=== PATIENT | female | born 1930 | race Caucasian/White ===

== ENCOUNTER 2016-06-26 09:23 | Inpatient (IN) | payer MEDICARE, BC ==
[~2016-06-26] VITALS: Ht 154.9 cm; Wt 46.6 kg
[2016-06-26] VITALS (18 sets, daily range): BP systolic 122–147; BP diastolic 71–95; PULSE 73–93; RESP 13–24; TEMP 98.3; Ht 154.9 cm; Wt 46.6 kg
[2016-06-26] MEDS ORDERED: HEPARIN 1000 UNITS/ML 10 ML INJ IV STA (09:25)
[2016-06-26] MEDS ORDERED: SOD CHLORIDE 0.9% 500 ML IV STA (09:25)
[2016-06-26] MEDS ORDERED: TICAGRELOR 90 MG TABLET PO ONE (09:30)
[2016-06-26] MEDS ORDERED: NITROGLYCERIN (SL) 0.4 MG TAB SL ONE (09:30)
[2016-06-26 09:40] LABS: ADD SCAN DIFF NO
[2016-06-26 09:43] LABS: HEMATOCRIT 41.6 % (37.0-47.0); HEMOGLOBIN 13.7 g/dl (12.0-16.0); LYMPHOCYTES # 1.4 10^3/ul (0.8-2.9); LYMPHOCYTES % 20.8 % (15.0-51.0); MEAN CORPUSCULAR HEMOGLOBIN 31.3 pg (29.0-33.0); MEAN CORPUSCULAR HGB CONC 32.9 g/dl (32.0-37.0); MEAN PLATELET VOLUME 9.6 fl (7.4-10.4); MONOCYTE # 0.6 10^3/ul (0.3-0.9); MONOCYTES % 9.5 % (0.0-11.0); NEUTROPHIL # 4.6 10^3/ul (1.6-7.5); NEUTROPHILS % 69.4 % (39.0-77.0); PLATELET COUNT 207 10^3/UL (140-415); RED BLOOD COUNT 4.38 10^6/ul (4.20-5.40); RED CELL DISTRIBUTION WIDTH 14.2 % (11.5-14.5); WHITE BLOOD COUNT 6.6 10^3/ul (4.8-10.8)
[2016-06-26] MEDS ORDERED: ONDANSETRON 4 MG INJ IV STA (09:46)
[2016-06-26] MEDS ORDERED: morphine 4 MG/ML VIAL IV STA (09:46)
[2016-06-26 09:51] LABS: ALBUMIN 3.9 g/dl (3.3-4.9)
[2016-06-26 09:52] LABS: POTASSIUM 4.1 mmol/L (3.5-5.1)
--- NOTE | 2016-06-26 09:52 | RADRPT ---
PROCEDURE: XR Chest. CLINICAL INDICATION: Chest pain. Code STEMI. TECHNIQUE: Single frontal view. COMPARISON: None. FINDINGS: There is mild interstitial disease bilaterally consistent with pulmonary edema. The lungs are other villa clear. The heart size is normal. There is calcification in the aorta consistent with atherosclerosis. There is no pleural effusion or pneumothorax. Surgical clips are present in the left axilla. IMPRESSION: 1. Mild pulmonary edema. 2. Atherosclerosis. 3. Prior left axillary surgery. RPTAT: QQ .Donnie Keyes MD, MD Date Time Electronically viewed and signed by .Donnie Keyes MD, MD on 06/26/2016 09:52 .R/
[2016-06-26 09:53] LABS: CREATININE 0.78 mg/dl (0.44-1.00); INR 0.93; PROTIME 12.5 Sec (12.2-14.2)
[2016-06-26 09:54] LABS: ALBUMIN/GLOBULIN RATIO 1.62; BILIRUBIN,INDIRECT 0.4 mg/dl (0-1.1); BILIRUBIN,TOTAL 0.4 mg/dl (0.2-1.3); CALCIUM 9.4 mg/dl (8.4-10.2); TOTAL PROTEIN 6.3 g/dl (6.1-8.1)
--- NOTE | 2016-06-26 10:03 | CONS ---
Date/Time of Note Date/Time of Note DATE: 06/26/16 TIME: 10:00 Assessment/Plan Assessment/Plan Chief Complaint/Hosp Course Inferoposterior STEMI: to quality control lab tech emergently for revascularization Acute systolic heart failure: mild decompensation by exam due to above -ticagrelor given as ASA allergy is significant. Will have to consider a second agent like cilostazol after -cath now Problems: Consultation Date/Type/Reason Admit Date/Time Date of Consultation: Jun 26, 2016 Type of Consultation: Cardiology Reason for Consultation STEMI Hx of Present Illness 85 yo F with no PMHx presenting with chest pain which was on and off since last night but constant this am. She has a severe ASA allergy including rash and breathing difficulties. Ticagrelor and heparin was given in ER. Pt is agreeable to cath. Social History Smoking Status: Never smoker Exam/Review of Systems Vital Signs Vitals Vital Signs Date Time Temp Pulse Resp B/P Pulse Ox O2 Delivery O2 Flow Rate FiO2 06/26/16 09:35 98.3 93 20 171/94 98 Room Air Exam Constitutional: alert, oriented Head: normocephalic Neck: jvd (8cm) Respiratory: crackles/rales, No clear to auscultation Cardiovascular: regular rate and rhythm, No edema, No systolic murmur Gastrointestinal: soft Neurological: nl mental status, nl speech Results Result Diagram: 06/26/16 0930 Results 24 hrs Laboratory Tests Test 06/26/16 09:30 Basophils # 0.0 Basophils % 0.0 Eosinophils # 0.0 Eosinophils % 0.0 Hematocrit 41.6 Hemoglobin 13.7 INR International Normalized Ratio 0.93 Lymphocytes # 1.4 Lymphocytes % 20.8 Mean Corpuscular Hemoglobin 31.3 Mean Corpuscular Hemoglobin Concent 32.9 Mean Corpuscular Volume 95.0 Mean Platelet Volume 9.6 Monocytes # 0.6 Monocytes % 9.5 Neutrophils # 4.6 Neutrophils % 69.4 Nucleated Red Blood Cells # 0.0 Nucleated Red Blood Cells % 0.0 Platelet Count 207 Prothrombin Time 12.5 Prothrombin Time Ratio 1.0 Red Blood Count 4.38 Red Cell Distribution Width 14.2 White Blood Count 6.6 JESSICA PATEL Jun 26, 2016 10:03
[2016-06-26] MEDS ORDERED: NITROGLYCERIN (IC) 100 MCG/ML INJ ONE (10:08)
[2016-06-26] MEDS ORDERED: IODIXANOL LOCM 50 ML BTL ONE (10:08)
[2016-06-26] MEDS ORDERED: MIDAZOLAM 1 MG/ML 2 ML INJ ONE (10:08)
[2016-06-26] MEDS ORDERED: VERAPAMIL 5 MG INJ ONE (10:08)
[2016-06-26] MEDS ORDERED: IODIXANOL LOCM 100 ML BTL ONE (10:08)
[2016-06-26] MEDS ORDERED: LIDOCAINE 1% (MDV) 20 ML INJ ONE (10:08)
[2016-06-26] MEDS ORDERED: HEPARIN 1000 UNITS/ML 10 ML INJ ONE (10:08)
[2016-06-26 10:29] LABS: TROPONIN-I 0.833 ng/ml (0.00-0.12)
[2016-06-26] MEDS ORDERED: FENTAnyl 50 MCG/ML VIAL ONE (10:54)
[2016-06-26] MEDS ORDERED: ONDANSETRON 4 MG INJ IV PRN (11:30)
[2016-06-26] MEDS ORDERED: morphine 2 MG INJ IV PRN (11:30)
--- NOTE | 2016-06-26 13:05 | OPR ---
Date/Time of Note Date/Time of Note DATE: 06/26/16 TIME: 12:54 Operative Report Free Text/Dictation Procedure Date: 06/26/2016 Procedures Performed: 1)Selective left and right coronary angiography. 2)Balloon angioplasty and stenting of the prox OM 2 with a Resoluet 2.25 x 14 drug eluting stent 3)Right femoral angiography with Perclose closure device placement. Pre-operative Diagnosis:inferoposterior STEMI Post-operative Diagnosis:same Indications:85 yo F who presented with chest pain and was found to have an inferoposterior STEMI. Description of Procedure: After informed consent, the patient was brought to the cardiac catheterization lab. The procedure site was prepped and draped in usual manner. The patient was premedicated with versed 0.5mg. 5 mL lidocaine was injected into the right groin. Next using the Seldinger technique, the 6 montenegrin sheath was inserted into the right femoral artery. Next using the JL4/JR4 guide, selective angiography of the left and right coronary arteries were obtained. The JR entered the ventricle and so oullback pressures were also obtained. The decision was made to proceed with PCI of the OM as this was the culprit vessel. A 6 montenegrin Voda 3.5 guide was advanced and engaged into the left. The pt had already been loaded with ticagrelor and she had a severe ASA allergy so this was not given. She had received heparin in the ER and her ACT was therapeutic so no further meds were given. The BMW angioplasty wire was advanced past the lesion. There was already JEFFERY 3 flow return after wire crossing. Next the 2.0 X 12 balloon was used to dotter the vessel and then dilate the lesion times 1 at a maximum of 8 zoraida. Subsequently, the Resolute 2.25 x 14 stent was advanced to the lesion and deployed at 9 zoraida. Next the stent was post dilated with the 2.5 X 6 noncompliant balloon times 2 at a maximum of 12 zoraida. Final angiography revealed JEFFERY 3 flow, no edge dissection, and appropriate stent expansion. Next all equipment was removed and hemostasis was achieved by Perclose closure device once right femoral angiography revealed the sheath was in the appropriate location in the common femoral. Findings: Anatomy/Hemodynamics: Left main: No significant disease LAD:mid sequential 80-90% lesions Diagonal:no significant disease Circumflex:mid 40% Obtuse marginal 1: very small vessel with mid 80% Obtuse marginal 2: moderate size vessel with prox 100% occlusion and thrombus/ contrast staining in the distal vessel RCA:luminal irregularities up to 20-30% PDA:mid 50% in a small vessel PLV:luminal irregularities LV angiography:was not done LV-Ao no gradient seen LVEDP: 14 mmHg Medications used: Versed 0.5 Fentanyl 25 Heparin 2000 additional units (3600 given in ED) Ticagrelor 180mg given in ED No ASA due to allergy Verapamil 100mcg IC x 1 Equipment used: 6 montenegrin Voda 3.5 guide BMW angioplasty wire 2 x 12 balloon Resolute 2.25 x 14 drug eluting stent 2.5 x 6 noncompliant balloon Assessment: Inferoposterior STEMI s/p successful PCI and stenting of prox OM with Resolute 2.25 x 14 drug eluting stent. Residual significant mid LAD disease which will be staged. Plan: -Monitor in ICU -ticagrelor monotherapy for now. Cant use ASA due to severe allergy. Will consider cilostazol as second agent. -metoprolol 25mg BID -lipitor -echo -add ACEI if BP and renal function tolerate once LAD is also revascularized -PCI of LAD tomorrow am JESSICA PATEL Jun 26, 2016 13:05
--- NOTE | 2016-06-26 14:09 | ERA ---
ER Documentation Chief Complaint Date/Time DATE: 06/26/16 TIME: 14:08 Chief Complaint patient ANGÉLICA with complaint Stemi Response HPI 85-year-old woman brought in by EMS for complaints of pressure-like chest pain beginning last night and continuing until this morning. She had associated nausea and intermittent shortness of breath. Patient denies previous chest, she denies fevers or chills, no cough, no calf or leg swelling, no vomiting or diarrhea. Patient states she is allergic to aspirin and breaks out into severe diffuse hives. ROS All systems reviewed and are negative except as per history of present illness. Allergies Allergies: Coded Allergies: aspirin (Verified Allergy, Intermediate, Severe Rash, 06/26/16) sulfamoxole (Verified Allergy, Intermediate, Rash, 06/26/16) PMhx/Soc None History of Surgery: No Anesthesia Reaction: No Hx Neurological Disorder: No Hx Respiratory Disorders: Yes (Asthma) Hx Cardiac Disorders: Yes (Breast CA) Hx Psychiatric Problems: No Hx Miscellaneous Medical Probl: No Hx Alcohol Use: No Hx Substance Use: No Hx Tobacco Use: No Smoking Status: Never smoker FmHx Family History: No diabetes Physical Exam Vitals Vital Signs Date Time Temp Pulse Resp B/P Pulse Ox O2 Delivery O2 Flow Rate FiO2 06/26/16 09:35 98.3 93 20 171/94 98 Room Air 06/26/16 09:31 Nasal Cannula 06/26/16 09:23 98.9 93 20 144/92 100 Physical Exam GENERAL: Well-developed, well-nourished, well-hydrated, in no apparent distress , looks nontoxic in appearance HEENT: Moist mucous membranes, pink conjunctiva, no cervical spine tenderness or step-off deformities, no goiter, no jaundice or icterus, extraocular movements intact without pain. No submandibular induration, and no pharyngeal erythema NEURO: Alert and oriented 3, cranial nerves II through XII intact bilaterally, pupils equal round reactive to light, no focal deficits or facial asymmetry, sensation intact distally Strength 5/5 in upper and lower extremities bilaterally CARDIAC: Regular rate and rhythm, no murmurs rubs or gallops LUNGS: Clear bilaterally no wheezing crackles or stridor ABDOMEN: Soft nontender, no guarding, no rigidity, no rebound, no psoas sign no obturator sign. Normoactive bowel sounds SKIN: Warm and dry to touch, no abrasions, contusions, or hematomas, no lacerations, no ecchymosis, no target lesions, and without ulcers EXTREMITIES: No clubbing cyanosis or edema, calves are bilaterally symmetrical, no Homans sign, no popliteal cord sign. Distal pulses equal and bilateral PSYCH: Normal affect without agitation or irritability Result Diagram: 06/26/1630 06/26/16 0930 Results 24 hrs Laboratory Tests Test 06/26/16 09:30 Alanine Aminotransferase (ALT/SGPT) 26IU/L Albumin 3.9g/dl Albumin/Globulin Ratio 1.62 Alkaline Phosphatase 58IU/L Anion Gap 12 Aspartate Amino Transf (AST/SGOT) 30IU/L Basophils # 0.010^3/ul Basophils % 0.0% Blood Urea Nitrogen 27mg/dl Calcium Level 9.4mg/dl Carbon Dioxide Level 28mmol/L Chloride Level 105mmol/L Creatinine 0.78mg/dl Direct Bilirubin 0.00mg/dl Eosinophils # 0.010^3/ul Eosinophils % 0.0% Globulin 2.40g/dl Glucose Level 107mg/dl Hematocrit 41.6% Hemoglobin 13.7g/dl INR International Normalized Ratio 0.93 Indirect Bilirubin 0.4mg/dl Lipase 43U/L Lymphocytes # 1.410^3/ul Lymphocytes % 20.8% Mean Corpuscular Hemoglobin 31.3pg Mean Corpuscular Hemoglobin Concent 32.9g/dl Mean Corpuscular Volume 95.0fl Mean Platelet Volume 9.6fl Monocytes # 0.610^3/ul Monocytes % 9.5% Neutrophils # 4.610^3/ul Neutrophils % 69.4% Nucleated Red Blood Cells # 0.010^3/ul Nucleated Red Blood Cells % 0.0/100WBC Platelet Count 42805^3/UL Potassium Level 4.1mmol/L Prothrombin Time 12.5Sec Prothrombin Time Ratio 1.0 Red Blood Count 4.3810^6/ul Red Cell Distribution Width 14.2% Sodium Level 141mmol/L Total Bilirubin 0.4mg/dl Total Protein 6.3g/dl Troponin I 0.833ng/ml White Blood Count 6.610^3/ul Current Medications Medications (Trade) Dose Ordered Sig/Selene Route PRN Reason Start Time Stop Time Status Last Admin Dose Admin Sodium Chloride (NS) 500 ml @ 500 mls/hr Q1H STAT IV 06/26/16 09:25 06/26/16 10:24 DC 06/26/16 09:54 Nitroglycerin (Nitroglycerin (Sl Tab) 0.4 Mg) 1 tab ONCE ONCE SL 06/26/16 09:30 06/26/16 09:31 DC 06/26/16 09:53 Heparin Sodium (Porcine) (Heparin (1000 Units/ml)) 3,600 unit ONCE STAT IV 06/26/16 09:25 06/26/16 09:28 DC 06/26/16 09:48 Ticagrelor (Brilinta) 180 mg ONCE ONCE PO 06/26/16 09:30 06/26/16 09:31 DC 06/26/16 09:49 Morphine Sulfate (morphine) 4 mg ONCE STAT IV 06/26/16 09:46 06/26/16 09:47 DC 06/26/16 09:56 Ondansetron HCl (Zofran Inj) 4 mg ONCE STAT IV 06/26/16 09:46 06/26/16 09:47 DC 06/26/16 09:56 Heparin Sodium (Porcine) (Heparin (1000 Units/ml)) 10,000 unit STK-MED ONCE .ROUTE 06/26/16 10:08 06/26/16 10:09 DC Lidocaine (Xylocaine 1% (Mdv) 20 ml) 20 ml STK-MED ONCE .ROUTE 06/26/16 10:08 06/26/16 10:09 DC Iodixanol (Visipaque Locm) 50 ml STK-MED ONCE .ROUTE 06/26/16 10:08 06/26/16 10:09 DC Iodixanol 100 ml 100 ml STK-MED ONCE .ROUTE 06/26/16 10:08 06/26/16 10:09 DC Heparin Sodium/ Sodium Chloride (Heparin 1000 Units/NS (A-Line)) 1,500 ml @ ud STK-MED ONCE .ROUTE 06/26/16 10:08 06/26/16 10:09 DC Midazolam HCl (Versed) 2 mg STK-MED ONCE .ROUTE 06/26/16 10:08 06/26/16 10:09 DC Verapamil HCl (Verapamil) 5 mg STK-MED ONCE .ROUTE 06/26/16 10:08 06/26/16 10:09 DC Nitroglycerin (Nitroglycerin (Intracoronary)) 1,000 mcg STK-MED ONCE .ROUTE 06/26/16 10:08 06/26/16 10:09 DC Fentanyl (Sublimaze) 100 mcg STK-MED ONCE .ROUTE 06/26/16 10:54 06/26/16 10:55 DC Miscellaneous Information (* Miscellaneous Pharmacy Order) HOLD all METFORMIN ... ONCE XX 06/26/16 11:30 06/28/16 11:29 Morphine Sulfate (morphine) 2 mg Q2H PRN IV FOR NON CARDIAC PAIN (4-10) 06/26/16 11:30 Ondansetron HCl (Zofran Inj) 4 mg Q4H PRN IV NAUSEA AND/OR VOMITING 06/26/16 11:30 Procedures/MDM IV line was established patient was placed on associate broker rhythm strip revealed a sinus rhythm at about 90 bpm with upright P and T waves. I reviewed EMS EKG which revealed ST elevations in leads II-III, aVF, V4 through V6 concerning for acute ischemic changes and myocardial infarction. Immediate code STEMI was called and I spoke to the infrastructure analyst on-call he agreed to come in EKG in the emergency department was performed, read by me revealed a normal sinus rhythm at 95 bpm, normal axis, narrow QRS complex with 2-3 mm elevations in inferior leads and precordial leads with ST depressions in lead V2 again concerning for myocardial infarction in the setting of acute ischemic injury. Chest X-ray 1V Interpreted by me: Soft Tissue: No acute abnormalities Bones: No acute abnormalities Mediastinum/Cardiac Silhouette/Lungs: No acute abnormalities I administered 500 cc normal saline intravenously, morphine 4 mg IV, and Zofran 4 mg IV with good effect. Also administered nitroglycerin 0.4 mg sublingual 1 , heparin 60 U/kg (3600 units) IV bolus, and ticagrelor 180 mg p.o. Critical Care: Time: 36 minutes, this was time separate from other procedures. Treatments/Evaluations: Close monitoring and treatment of unstable vital signs, cardiorespiratory, and neurologic status, while maintaining tight balance of fluid, respiratory, and cardiac interventions. CBC was normal, electrolytes revealed dehydration with a BUN/creatinine of 27/ 0.8, liver function tests are normal, troponin was positive at 0.8 Patient admitted to hospitalist to the intensive care unit, is currently on her way to PCI Departure Diagnosis: Primary Impression: ST elevation myocardial infarction (STEMI) Qualified Code: I21.09 - ST elevation myocardial infarction (STEMI) involving other coronary artery of anterior wall Condition: Serious KEITH CANO MD Jun 26, 2016 14:09
[2016-06-26] MEDS: ATORVASTATIN 40 MG TAB PO SCH (20:36)
[2016-06-26] MEDS: TICAGRELOR 90 MG TABLET PO SCH (20:46)
[2016-06-26] MEDS ORDERED: METOPROLOL 25 MG TAB PO SCH (21:00)
[2016-06-27] VITALS (43 sets, daily range): BP systolic 68–141; BP diastolic 27–105; PULSE 68–163; RESP 11–29
[2016-06-27 04:54] LABS: ADD SCAN DIFF NO
[2016-06-27 05:08] LABS: BASOPHILS % 0.1 % (0.0-2.0); HEMATOCRIT 39.3 % (37.0-47.0); HEMOGLOBIN 13.1 g/dl (12.0-16.0); LYMPHOCYTES # 1.1 10^3/ul (0.8-2.9); LYMPHOCYTES % 12.3 % (15.0-51.0); MEAN CORPUSCULAR HEMOGLOBIN 31.7 pg (29.0-33.0); MEAN CORPUSCULAR HGB CONC 33.3 g/dl (32.0-37.0); MEAN CORPUSCULAR VOLUME 95.2 fl (82.0-101.0); MEAN PLATELET VOLUME 10.1 fl (7.4-10.4); MONOCYTE # 1.1 10^3/ul (0.3-0.9); MONOCYTES % 12.6 % (0.0-11.0); NEUTROPHIL # 6.7 10^3/ul (1.6-7.5); NEUTROPHILS % 74.6 % (39.0-77.0); PLATELET COUNT 183 10^3/UL (140-415); RED BLOOD COUNT 4.13 10^6/ul (4.20-5.40); RED CELL DISTRIBUTION WIDTH 14.3 % (11.5-14.5)
[2016-06-27 05:22] LABS: POTASSIUM 3.9 mmol/L (3.5-5.1)
[2016-06-27 05:24] LABS: CREATININE 0.61 mg/dl (0.44-1.00)
[2016-06-27 05:25] LABS: CALCIUM 8.7 mg/dl (8.4-10.2)
[2016-06-27] MEDS ORDERED: LIDOCAINE 1% (MDV) 20 ML INJ ONE (06:41)
[2016-06-27] MEDS ORDERED: HEPARIN 1000 UNITS/ML 10 ML INJ ONE (06:41)
[2016-06-27] MEDS ORDERED: IODIXANOL LOCM 100 ML BTL ONE (06:41)
[2016-06-27] MEDS ORDERED: FENTAnyl 50 MCG/ML VIAL ONE (06:41)
[2016-06-27] MEDS ORDERED: VERAPAMIL 5 MG INJ ONE (06:42)
[2016-06-27] MEDS ORDERED: NITROGLYCERIN (IC) 100 MCG/ML INJ ONE (06:42)
[2016-06-27] MEDS ORDERED: MIDAZOLAM 1 MG/ML 2 ML INJ ONE (06:42)
--- NOTE | 2016-06-27 06:57 | HP ---
DATE OF ADMISSION: 06/26/2016 CHIEF COMPLAINT: Chest pain. HISTORY OF PRESENT ILLNESS: This is an 85-year-old female with past medical history of breast cance r diagnosed 2 years ago, status post radiation and lumpectomy, pneumonia, appendectomy and cataract surgery, came in to [facility] secondary to reports of chest pain. According to t he patient, she started to have chest pain after having dinner the night prior to admission. She di d report that chest pain was pressure like in nature, which radiated to both of her shoulders, 10/10 in intensity. The patient at that time reported she "thought nothing of it". She proceeded to go to sleep, however, still persisted with chest pain. When she woke her chest pain was worse and subs equently called her daughter who then brought her to [facility] for further evalua tion. The patient did have blood work drawn and was found to have elevated troponin as high as 0.83 3. Additionally, the patient did have ST elevations in lead II, III and aVF as well as through V4 a nd V6, concerning for myocardial infarction. A code STEMI was called in the ER, and the patient was seen by cutlery grinder, Dr. Prakash Lawler. The patient did receive selective left and right coron son angiography with balloon angioplasty and stenting of the proximal ____ with Resolute 2.25 x 14 d rug-eluting stent. The patient did tolerate procedure well. Of note, there were findings of LAD mi d sequential 80% to 90% lesion. The patient did have stenting of the proximal ____ with Resolute 2. 25 x 14 drug-eluting stent. She did tolerate procedure well. She was currently seen in ICU. Vital signs remain stable. Denies any chest pain at this time. We will [facility]. MEDICAL AND SURGICAL HISTORY: 1. History of breast cancer diagnosed 2 years ago, status post radiation and lumpectomy. 2. Appendectomy. 3. Pneumonia. 4. Cataract surgery. SOCIAL HISTORY: The patient denies any alcohol consumption or drug abuse. She does report having a history of cigarette smoking over 30 years ago. FAMILY HISTORY: Patient does report having heart disease on her father's side and ovarian cancer on her mother's side. ALLERGIES: ASPIRIN WELL SULFA WITH REPORTED DIFFUSE PRURITUS AND BRADYCARDIA. HOME MEDICATIONS: (Please see computer chart). REVIEW OF SYSTEMS: A 12-point review of systems obtained and entirely negative except that mentione d in the history of present illness. PHYSICAL EXAMINATION VITAL SIGNS: Temperature is 98.3, pulse is 93, respiratory rate is 20, blood pressure is 171/94 and pulse ox is 98% on room air. GENERAL: This is an 85-year-old female in no apparent distress at the time. EYES: Pupils equal, round, reactive to light. Anicteric sclerae. NECK: Supple, nontender, no JVD. CARDIOVASCULAR: S1, S2 auscultated, regular rate to tachycardic. PULMONARY: Clear to auscultation bilaterally. No wheezing or rhonchi. ABDOMEN: Soft, nontender, nondistended. EXTREMITIES: No pitting edema on bilateral lower extremities. SKIN: Warm, dry, and intact. NEUROLOGIC: Alert, oriented x3. LABORATORY DATA: Sodium 141, potassium 4.1, BUN is 27, creatinine is 0.78. With noted troponin I a t 0.833. WBC is 6.6, hemoglobin 13.7, hematocrit is 41.6 and platelets are 207. IMAGING: Chest x-ray done on 06/26/2016 did show mild pulmonary edema and atherosclerosis, and prio r left axillary surgery. IMPRESSION AND PLAN: 1. ST elevated myocardial infarction. The patient to be resumed on beta payam and ANNALEE inhibitor as tolerated. We will continue her on Brilinta. The patient unable to tolerate aspirin at this hugo e due to her history of allergy. Possible consideration for cilostazol. 2. History of dyslipidemia. Will resume patient's statin medication. Follow up on fasting lipid p gricelda. 3. History of breast cancer. No active issue at this time. Patient to follow up as outpatient [facility] onc[facility]. 4. Deep venous thrombosis prophylaxis: SCDs. 5. GERD prophylaxis: PPI. ADMISSION PROCESS TIME: 40 minutes. Discussed plan of care with Dr. Paulino. Dictated By: KEISHA HARRIS NP for SHILA ROMANO/ANDIE Conf#: [id number] DID#: [id number]
[2016-06-27] MEDS ORDERED: TICAGRELOR 90 MG TABLET ONE (07:39)
[2016-06-27] MEDS ORDERED: ONDANSETRON 4 MG INJ ONE ×2 (08:09→08:49)
[2016-06-27] MEDS ORDERED: BIVALIRUDIN 250MG /NS 50 ML 50 ML IVPB ONE (08:30)
[2016-06-27] MEDS ORDERED: METOPROLOL 5 MG INJ ONE (08:50)
[2016-06-27] MEDS ORDERED: AMIODARONE 150 MG INJ ONE (08:56)
[2016-06-27] MEDS ORDERED: morphine 2 MG INJ IV PRN (09:30)
[2016-06-27] MEDS ORDERED: ONDANSETRON 4 MG INJ IV PRN (09:30)
--- NOTE | 2016-06-27 09:46 | OPR ---
Date/Time of Note Date/Time of Note DATE: 06/27/16 TIME: 09:27 Operative Report Free Text/Dictation Procedure Date:06/27/2016 Procedures Performed: 1)Balloon angioplasty and stenting of the mid LAD with a Resolute 2.25 x 12 drug eluting stent X 2. Pre-operative Diagnosis: Staged PCI post STEMI Post-operative Diagnosis:same Indications: staged PCI of LAD post STEMI Description of Procedure: After informed consent, the patient was brought to the cardiac catheterization lab. The procedure site was prepped and draped in usual manner. The patient was premedicated with versed 1mg. 2mL lidocaine was injected into the left wrist. Next using the posterior wall approach, the 6/5 niuean sheath was inserted into the left radial artery. A 6 niuean JL4 guide was advanced and engaged into the left coronary artery. After appropriate anticoagulation and antiplatelets were given, the BMW angioplasty wire was advanced past the lesion. As the balloon would not advance due to calcification/tortuosity, a Mailman wire was used as a godfrey wire. The 2.0 x 12 balloon again would not cross. At this time the flow to the LAD was JEFFERY 1 due to to the wire occlusion and the pt was experiencing chest pain. Next the 1.5 x 8 balloon was advanced and used to dilate the lesion x 5 up to 12 zoraida restoring JEFFERY 3 flow. Next the 2.0 X 12 balloon was used to dilate the lesion times 3 at a maximum of 12 zoraida. Next a 2.25 x 26 stent could not be advanced past the lesion over either wire and neither could a 2.25 x 12 stent. The decision was made to redilate the lesion with a 2.25 x 12 NC balloon which was done x 3 at 12 zoraida. Subsequently, the Resolute 2.25 x 12 stent was advanced to the lesion over the Mailman and deployed at 9 zoraida once the BMW was removed. The stent balloon was used to dilated the stent edge at 12 zoraida. The BMW was readvanced and the Resolute 2.25 x 12 stent was advanced to the lesion over the Mailman and deployed at 9 zoraida ( overlapping with prior stent) once the BMW was removed. Next the stent was post dilated with the 2.5 X 8 noncompliant balloon times 3 at a maximum of 12 zoraida. Final angiography revealed JEFFERY 3 flow, no edge dissection, and appropriate stent expansion. Next all equipment was removed and hemostasis was achieved by TR band. There was a small diagonal vessel that lost flow in the process but the pt was chest pain free. She did however go into afib with RVR during the procedure requiring IV metoprolol and amiodarone. At the end of the procedure she was in afib still but with HR around 100. Findings: Anatomy/Hemodynamics: Left main: no significant lesions LAD:mid sequential calcified, tortuous 90% lesions Circumflex: mid 40% Obtuse marginal: patent prox stent Contrast used: 115mL Fluoroscopy time:23.7m Medications used: Versed 1mg Fentanyl 50mcg Ticagrelor 90mg Radial cocktail: heparin 5000 units, NTG 200, verapamil 2.5 Metoprolol 2.5mg IV x 2 Amiodarone 150mg Equipment used: 6 niuean JL4 guide BMW and Mailman angioplasty wire 1.5 x 8 2 x 12 balloon Resolute 2.25 x 12 drug eluting stent X 2 (overlapping) 2.25 x 12 and 2.5 x 8 noncompliant balloon Assessment: CAD s/p staged PCI of LAD STEMI s/p PCI prox OM 06/26/2016 Paroxysmal atrial fibrillation Plan: -to ICU for monitoring -rate vs rhythm control -will discuss anticoagulation -continue ticagrelor JESSICA PATEL Jun 27, 2016 09:45
--- NOTE | 2016-06-27 10:21 | CONS ---
Date/Time of Note Date/Time of Note DATE: 06/27/16 TIME: 10:03 Assessment/Plan Assessment/Plan Chief Complaint/Hosp Course Inferoposterior STEMI: s/p PCI of occluded prox OM 06/26/16 CAD: Residual mid LAD lesions s/p PCI 06/27/16 Paroxysmal afib: Short run overnight, then afib during the cath and now in and out of afib/sinus Acute systolic heart failure: mild decompensation by exam during STEMI. Now compensated ASA allergy: rash/respiratory distress -continue ticagrelor -if EF ok will add cilostazol as second antiplatelet -continue metoprolol -amiodarone IV for rhythm control as first occurrence and just started -lipitor -will discuss anticoagulation options with pt Problems: Consultation Date/Type/Reason Admit Date/Time Jun 26, 2016 at 12:06 Initial Consult Date 06/26/16 Type of Consultation: Cardiology 24 HR Interval Summary Free Text/Dictation O/n had a short run of afib. This am s/p PCI of her LAD. Went into afib with RVR towards the end of the procedure. Now in and out of afib after amio bolus. Feels nauseated but received fentanyl during the cath (morphine makes her nauseated). No chest pain Exam/Review of Systems Vital Signs Vitals Vital Signs Date Time Temp Pulse Resp B/P Pulse Ox O2 Delivery O2 Flow Rate FiO2 06/27/16 07:00 77 11 141/87 98 Nasal Cannula 06/27/16 04:00 2.0 06/27/16 04:00 98.8 Intake and Output 06/26/16 06/26/16 06/27/16 15:00 23:00 07:00 Intake Total 150 ml 300 ml 0 ml Output Total 300 ml 1000 ml 450 ml Balance -150 ml -700 ml -450 ml Exam Constitutional: alert, oriented Head: atraumatic, normocephalic Neck: No jvd Respiratory: clear to auscultation, No crackles/rales, No wheezing Cardiovascular: No edema, No regular rate and rhythm (IRIR, tachy) Gastrointestinal: soft Neurological: nl mental status, nl speech Results Result Diagram: 06/27/16 0443 06/27/16 0443 Results 24 hrs Laboratory Tests Test 06/27/16 04:43 Anion Gap 11 Basophils # 0.0 Basophils % 0.1 Blood Urea Nitrogen 17 # Calcium Level 8.7 Carbon Dioxide Level 27 Chloride Level 102 Creatinine 0.61 Eosinophils # 0.0 Eosinophils % 0.0 Glucose Level 107 Hematocrit 39.3 Hemoglobin 13.1 Lymphocytes # 1.1 Lymphocytes % 12.3 L Magnesium Level 2.1 Mean Corpuscular Hemoglobin 31.7 Mean Corpuscular Hemoglobin Concent 33.3 Mean Corpuscular Volume 95.2 Mean Platelet Volume 10.1 Monocytes # 1.1 H Monocytes % 12.6 H Neutrophils # 6.7 Neutrophils % 74.6 Nucleated Red Blood Cells # 0.0 Nucleated Red Blood Cells % 0.0 Platelet Count 183 Potassium Level 3.9 Red Blood Count 4.13 L Red Cell Distribution Width 14.3 Sodium Level 136 White Blood Count 9.0 # Medications Medications Current Medications Ticagrelor (Brilinta) 90 mg BID PO Last administered on 06/26/16 20:46; Admin Dose 90 MG; Start 06/26/16 at 21:00 Atorvastatin Calcium (Lipitor) 40 mg QHS PO Last administered on 06/26/16 20:36 ; Admin Dose 40 MG; Start 06/26/16 at 21:00 Miscellaneous Information (* Miscellaneous Pharmacy Order) HOLD all METFORMIN ... ONCE XX ; Start 06/26/16 at 11:30; Stop 06/28/16 at 11:29 Exemestane (Aromasin) 25 mg DAILY PO ; Start 06/27/16 at 09:00 Metoprolol Tartrate (Lopressor) 50 mg BID PO ; Start 06/27/16 at 21:00 Morphine Sulfate (morphine) 2 mg Q2H PRN IV FOR NON CARDIAC PAIN (4-10); Start 06/27/16 at 09:30 Ondansetron HCl (Zofran Inj) 4 mg Q4H PRN IV NAUSEA AND/OR VOMITING; Start 06/27 at 09:30 JESSICA PATEL Jun 27, 2016 10:13
[2016-06-27] MEDS ORDERED: AMIODARONE 900 MG in DEXTROSE 5% 482 ML IV SCH (10:30)
[2016-06-27] MEDS: EXEMESTANE 25 MG TAB PO SCH (10:45)
[2016-06-27] MEDS: METOPROLOL 25 MG TAB PO SCH ×2 (11:04→21:00)
[2016-06-27 12:16] LABS: CHOL/HDL RATIO 3.6 RATIO
[2016-06-27] MEDS: TICAGRELOR 90 MG TABLET PO SCH ×2 (12:25→21:00)
[2016-06-27] MEDS ORDERED: SOD CHLORIDE 0.9% 250 ML IV ONE (14:30)
--- NOTE | 2016-06-27 15:25 | PN ---
DATE: 06/27/2016 TIME OF EVALUATION: 12:30. SUBJECTIVE DATA: Denies any chest pain. Denies any dyspnea. OBJECTIVE DATA: VITAL SIGNS: Temperature 98.8, pulse rate 100, respiratory rate 21, blood pressure 116/75, oxygen saturation 100% on room air. GENERAL: This is a thin, frail-looking female, lying in bed, in no apparent distress. HEENT: Head normocephalic and atraumatic. Eyes: Anicteric sclerae. Conjunctivae clear. ENT: Nasal septum is midline. Oral mucosa is dry. NECK: Supple. No JVD noticed. RESPIRATORY: Bilaterally clear to auscultation. No adventitious breath sounds heard. No use of accessory muscles of respiration. CARDIAC: Irregularly irregular rhythm. No obvious murmurs heard. ABDOMEN: Soft, nontender, and nondistended. Bowel sounds positive in all 4 quadrants. GENITOURINARY: Deferred. EXTREMITIES: No cyanosis, no clubbing, no edema. Peripheral pulses palpable. NEUROLOGIC: The patient is awake, alert, and oriented. Cranial nerves are grossly intact. LABORATORY AND DIAGNOSTIC DATA: WBC 9.0, hemoglobin 13.1, hematocrit 39.3, platelet count 183. Sodium 136, potassium 3.9, chloride 100, carbon dioxide 27 , anion gap 11, BUN 7, creatinine 0.61, glucose 107, calcium 8.7, magnesium 2.1. ASSESSMENT: 1. ST elevation myocardial infarction. Status post coronary angiogram with insertion of drug-eluting stents x2 to LAD and a drug-eluting stent x1 to talk obtuse marginal. Continue Brilinta. THE PATIENT IS ALLERGIC TO ASPIRIN. 2. Essential hypertension. Continue antihypertensives. 3. Atrial fibrillation. The patient currently on amiodarone. 4. History of breast cancer, status post lumpectomy and radiation. Continue Aromasin. 5. Fluid, electrolytes, and nutrition. Continue low cholesterol diet. 6. Deep venous thrombosis prophylaxis. Bilateral sequential compression devices. 7. Gastrointestinal prophylaxis. Proton pump inhibitors. PLAN: Await cardiology clearance before transfer the patient out of the unit or before sending the patient home. Await 2D echocardiogram. The case was discussed with Dr. Cook. Critical care time 35 minutes. MORE COOK MD, AM/ANDIE Conf#: [id number] DID#: [id number] [facility] CENTERSydni
[2016-06-27] MEDS: ATORVASTATIN 40 MG TAB PO SCH (21:00)
[2016-06-27] MEDS ORDERED: METOPROLOL 50 MG TAB PO SCH (21:00)
[2016-06-28] VITALS (15 sets, daily range): BP systolic 78–133; BP diastolic 56–122; PULSE 78–94; RESP 12–24
[2016-06-28 04:53] LABS: ADD SCAN DIFF NO
[2016-06-28 05:19] LABS: HEMATOCRIT 37.3 % (37.0-47.0); HEMOGLOBIN 12.7 g/dl (12.0-16.0); LYMPHOCYTES % 8.8 % (15.0-51.0); MEAN CORPUSCULAR HEMOGLOBIN 31.9 pg (29.0-33.0); MEAN CORPUSCULAR VOLUME 93.7 fl (82.0-101.0); MEAN PLATELET VOLUME 10.5 fl (7.4-10.4); MONOCYTE # 1.3 10^3/ul (0.3-0.9); NEUTROPHIL # 8.6 10^3/ul (1.6-7.5); NEUTROPHILS % 78.8 % (39.0-77.0); PLATELET COUNT 195 10^3/UL (140-415); RED BLOOD COUNT 3.98 10^6/ul (4.20-5.40); WHITE BLOOD COUNT 10.9 10^3/ul (4.8-10.8)
[2016-06-28 05:24] LABS: POTASSIUM 3.6 mmol/L (3.5-5.1)
[2016-06-28 05:26] LABS: CREATININE 0.56 mg/dl (0.44-1.00); MAGNESIUM 2.1 mg/dl (1.7-2.5); PHOSPHORUS 2.3 mg/dl (2.5-4.9)
[2016-06-28 05:27] LABS: CALCIUM 8.6 mg/dl (8.4-10.2)
[2016-06-28] MEDS ORDERED: PANTOPRAZOLE (EC) 40 MG TAB PO SCH (06:00)
--- NOTE | 2016-06-28 08:02 | CONS ---
Date/Time of Note Date/Time of Note DATE: 06/28/16 TIME: 07:58 Assessment/Plan Assessment/Plan Chief Complaint/Hosp Course Inferoposterior STEMI: s/p PCI of occluded prox OM 06/26/16 CAD: Residual mid LAD lesions s/p PCI 06/27/16 Paroxysmal afib: Short run overnight 06/27, then afib during the cath and now back in sinus. CHADSVASC is 3 and pt is agreeable to anticoagulation Acute systolic heart failure: mild decompensation by exam during STEMI. Mild LV dysfunction. Now compensated ASA allergy: rash/respiratory distress -continue ticagrelor -add Eliquis 2.5mg BID (age, weight) -will not add cilostazol due to addition of Eliquis and subnormal EF -switch to coreg 3.125mg BID -add low dose lisinopril and titrate as outpt -lipitor -no amio on d/c -if no afib recurrence this afternoon and ambulating without issues, ok for d/c with f/u 1-2 weeks Problems: Consultation Date/Type/Reason Admit Date/Time Jun 26, 2016 at 12:06 Initial Consult Date 06/26/16 Type of Consultation: Cardiology 24 HR Interval Summary Free Text/Dictation No o/n events. Remained in sinus after amio. No complaints. Would like to go home. Exam/Review of Systems Vital Signs Vitals Vital Signs Date Time Temp Pulse Resp B/P Pulse Ox O2 Delivery O2 Flow Rate FiO2 06/28/16 06:15 89 19 114/73 98 Room Air 06/28/16 04:00 98.8 06/27/16 09:30 2.0 Intake and Output 06/27/16 06/27/16 06/28/16 15:00 23:00 07:00 Intake Total 959.92 ml 266.56 ml 116.62 ml Output Total 350 ml 500 ml 200 ml Balance 609.92 ml -233.44 ml -83.38 ml Exam Constitutional: alert, oriented Head: normocephalic Neck: No jvd Respiratory: clear to auscultation, No crackles/rales Cardiovascular: regular rate and rhythm, No edema Gastrointestinal: soft Extremities: normal pulses Neurological: nl mental status, nl speech Results Result Diagram: 06/28/16 0427 06/28/16426 Results 24 hrs Laboratory Tests Test 06/28/16 04:27 Anion Gap 12 Basophils # 0.0 Basophils % 0.0 Blood Urea Nitrogen 16 Calcium Level 8.6 Carbon Dioxide Level 26 Chloride Level 103 Creatinine 0.56 Eosinophils # 0.0 Eosinophils % 0.0 Glucose Level 109 Hematocrit 37.3 Hemoglobin 12.7 Lymphocytes # 1.0 Lymphocytes % 8.8 L Magnesium Level 2.1 Mean Corpuscular Hemoglobin 31.9 Mean Corpuscular Hemoglobin Concent 34.0 Mean Corpuscular Volume 93.7 Mean Platelet Volume 10.5 H Monocytes # 1.3 H Monocytes % 12.0 H Neutrophils # 8.6 H Neutrophils % 78.8 H Nucleated Red Blood Cells # 0.0 Nucleated Red Blood Cells % 0.0 Phosphorus Level 2.3 L Platelet Count 195 Potassium Level 3.6 Red Blood Count 3.98 L Red Cell Distribution Width 14.0 Sodium Level 137 White Blood Count 10.9 #H Medications Medications Current Medications Ticagrelor (Brilinta) 90 mg BID PO Last administered on 06/27/16 21:00; Admin Dose 90 MG; Start 06/26/16 at 21:00 Atorvastatin Calcium (Lipitor) 40 mg QHS PO Last administered on 06/26/16 20:36 ; Admin Dose 40 MG; Start 06/26/16 at 21:00 Miscellaneous Information (* Miscellaneous Pharmacy Order) HOLD all METFORMIN ... ONCE XX ; Start 06/26/16 at 11:30; Stop 06/28/16 at 11:29 Exemestane (Aromasin) 25 mg DAILY PO Last administered on 06/27/16 10:45; Admin Dose 25 MG; Start 06/27/16 at 09:00 Morphine Sulfate (morphine) 2 mg Q2H PRN IV FOR NON CARDIAC PAIN (4-10); Start 06/27/16 at 09:30 Ondansetron HCl 4 mg 4 mg Q4H PRN IV NAUSEA AND/OR VOMITING; Start 06/27/16 at 09:30 Amiodarone HCl/ Dextrose (Cordarone Iv/ D5W) 500 ml @ 0 mls/hr Q0M IV Last administered on 06/27/16 11:26; Admin Dose 33.3 MLS/HR; Start 06/27/16 at 10:30; Stop 06/28/16 at 10:29 Metoprolol Tartrate (Lopressor) 25 mg BID PO Last administered on 06/27/16 11: 04; Admin Dose 25 MG; Start 06/27/16 at 11:00 Pantoprazole (Protonix Tab) 40 mg DAILY@06 PO Last administered on 06/28/16 06: 35; Admin Dose 40 MG; Start 06/28/16 at 06:00 JESSICA PATEL Jun 28, 2016 08:02
--- NOTE | 2016-06-28 08:12 | RADRPT ---
Echocardiogram Report Patient Name: DANA BENITO Gender: Female Date: 1930 Study Date: 27-Jun-2016 Channel Marketing Specialist: Sotero Powell RDCS Location: 116 Ref. Physician: JESSICA PATEL Quality: Technically Difficult Study Procedures: Transthoracic echocardiogram with complete 2D, M-Mode, and doppler examination. Indications: inferiorposterior STEMI. 2D/M Mode Doppler Measurement Value Normal Ranges Measurement Value Normal Ranges LVIDd 2D 4.3 3.5 - 5.6 cm AV Peak Celio 1.3 m/sec LVIDs 2D 2.3 2.1 - 4.1 cm AV Peak PG 7.0 mmHg LVPWd 2D 0.8 0.6 - 1.1 cm LVOT Peak Celio 0.8 m/sec IVSd 2D 0.8 0.6 - 1.1 cm LVOT Peak PG 2.8 mmHg AoR Diam 2D 2.2 2.0 - 3.7 cm MV E Peak Celio 1.2 m/sec EDV 2D 85.0 cm3 MV A Peak Celio 0.9 m/sec ESV 2D 12.9 cm3 MV E/A 1.4 LA Dimen 2D 3.5 2.3 - 4.0 cm MV Decel Time 153 msec MV Decel Dimmit 8 MV E/A 1.4 TR Peak Celio 2.4 m/sec TR Peak PG 22.9 mmHg RVSP 38.0 mmHg Findings Left Ventricle: Normal left ventricular cavity size. Normal left ventricular wall thickness. Mild left ventricular systolic dysfunction. Ejection fraction is visually estimated at 45 %. Resting Segmental Wall Motion Analysis: Hypokinesis of the apex and mid to distal anterior and anterolateral mann. Right Ventricle: Normal right ventricular size. Normal right ventricular systolic function. Left Atrium: There is mild enlargement of left atrium. Right Atrium: The right atrium is normal in size. Mitral Valve: Mild mitral leaflet calcification. Severe mitral annular calcification. Mild mitral valve regurgitation. Aortic Valve: No significant aortic stenosis or insufficiency. Aortic cusps appear mildly calcified. Tricuspid Valve: Normal appearance of the tricuspid valve. Estimated peak PA systolic pressure 31 mmHg. There is mild tricuspid regurgitation. Pulmonic Valve: Pulmonic valve not well visualized. Pericardium: Normal pericardium with no significant pericardial effusion. Aorta: Normal aortic root. IVC: Dilated IVC with respiratory collapse consistent with elevated right atrial pressure. Conclusions 1.Normal left ventricular cavity size. Normal left ventricular wall thickness. Mild left ventricular systolic dysfunction. Ejection fraction is visually estimated at 45 %. Hypokinesis of the apex and mid to distal anterior and anterolateral mann. 2.No significant valvular stenosis or regurgitation seen. 3.Estimated peak PA systolic pressure 31 mmHg based on RA pressure of 8 mmHg. Electronically Signed By: Jessica Patel 28-Jun-2016 08:11:52 -0800 Patient Name: DANA BENITO Study Date: 27-Jun-2016 [id number]
[2016-06-28] MEDS: TICAGRELOR 90 MG TABLET PO SCH (08:51)
[2016-06-28] MEDS: EXEMESTANE 25 MG TAB PO SCH (08:51)
[2016-06-28] MEDS ORDERED: LISINOPRIL 5 MG TAB PO SCH (09:00)
[2016-06-28] MEDS ORDERED: APIXABAN 5 MG TABLET PO SCH (09:00)
--- NOTE | 2016-06-28 13:31 | PDOCDIS ---
Discharge Instructions DIAGNOSIS Discharge Diagnosis: STEMI. CAD. CONDITION Patient Condition: Stable HOME CARE INSTRUCTIONS: Special Diet: heart healthy diet FOLLOW UP/APPOINTMENTS Appointments Prakash Lawler MD Specialty: Interventional Cardiology Office Address: [address] [place] [address]. [address] [place] [id number] Office OTHER ORDERS: Other Orders: 1. Take medications as per prescription. Never stop taking Brilinta and Eliquis until you talk to your senior it project manager. 2. Low-cholesterol diet. 3. Activities as tolerated. 4. Follow-up with your senior it project manager in 2 weeks. Please call for appointment. 5. Please call 911 or go to the nearest emergency room if you have any chest pain MORE DELGADO NP Jun 28, 2016 13:31
[2016-06-28] MEDS ORDERED: TICA90TA PO (13:32)
[2016-06-28] MEDS ORDERED: LISI-313 PO (13:32)
[2016-06-28] MEDS ORDERED: APIX5TAB PO (13:32)
[2016-06-28] MEDS ORDERED: CARV3.1260 PO (13:32)
[2016-06-28] MEDS ORDERED: ATOR40TA68 PO (13:32)
[2016-06-28] MEDS ORDERED: EXEM25TA PO (13:32)
--- NOTE | 2016-06-28 19:55 | DS ---
DATE OF ADMISSION: 06/26/2016 DATE OF DISCHARGE: 06/28/2016 FINAL DIAGNOSES: 1. ST elevation myocardial infarction. Status post percutaneous coronary intervention with placement of drug-eluting stents x2 to left anterior descending and drug-eluting stent x1 to obtuse marginal. 2. Ischemic cardiomyopathy with ejection fraction of 45%. 3. Essential hypertension. 4. Paroxysmal atrial fibrillation. 5. History of breast cancer status post lumpectomy and radiation. CONSULTANTS: Prakash Lawler MD, interventional cardiology. HOSPITAL COURSE: This 85-year-old female with past medical history of breast cancer who is status post radiation therapy and lumpectomy who came to the emergency room with chief complaint of chest pain. The patient verbalized the chest pain as pressure-like in nature with radiation to both of her shoulders and 10/10 in intensity. In the emergency room, the patient was noticed to have elevated troponins. The patient also had ST elevations in II, III, aVF as well as V4 and V6, concerning for STEMI. A code STEMI was called. In the ER, the patient was emergently taken to the medical laboratory technologist by interventional cardiology. The patient had a drug-eluting stent placed to the obtuse marginal artery and the patient was transferred to the intensive care unit. The patient's initial coronary angiogram also revealed left anterior descending artery with 80% to 90 % stenosis. Hence, the patient was taken to the medical laboratory technologist on 06/27/2016 and the patient underwent angioplasty to the LAD with placement of drug-eluting stents x2. Post-procedure, the patient was transferred back to the intensive care unit. The patient is SEVERELY ALLERGY TO ASPIRIN. Hence, patient was initially started on Brilinta. The geology faculty member decided to start the patient on apixiban along with the Brilinta for keeping the stents open. The patient's 2D echocardiogram revealed ischemic cardiomyopathy with ejection fraction of 45%. Hence, the patient was started on beta blockers and ANNALEE inhibitors. The patient also had atrial fibrillation during the post-procedure period. Hence, the patient was maintained on amiodarone and the patient was converted to normal sinus rhythm. The patient was also started on statins because of her underlying CAD. The patient's hemoglobin A1c was within normal limits. The patient has history of breast cancer. The patient was maintained on chemotherapeutic drugs. The patient had no active issues. The patient had a stable hospital course. The patient was cleared by cardiology to be discharged home. The patient denied any chest pain or any other complaints at the time of discharge. DISCHARGE PLAN: The patient will be discharged home today. The patient was instructed to take medications as per prescription. The patient was instructed to follow a low cholesterol diet. The patient was instructed to not stop taking Brilinta and Eliquis unless she talks to her geology faculty member. The patient was instructed to follow up with Dr. Lawler in 2 weeks. She was instructed to resume activities as tolerated. She was instructed to call 911 or go to the nearest emergency room if she has any chest pain. The patient verbalized understanding of her discharge instructions. CONDITION AT DISCHARGE: Stable. DISCHARGE MEDICATIONS: 1. Apixiban 2.5 mg p.o. b.i.d. 2. Atorvastatin 40 mg p.o. at bedtime. 3. Coreg 3.125 mg p.o. b.i.d. 4. Exemestane 25 mg p.o. daily. 5. Lisinopril 2.5 mg p.o. daily. 6. Brilinta 90 mg p.o. b.i.d. PERTINENT LABORATORY, DIAGNOSTIC DATA, AND PROCEDURES: 1. 2-D echocardiogram. Ejection fraction of 45%. No significant valvular stenosis or regurgitation. Estimated peak PA systolic pressure of 31 mmHg. 2. Selective left and right coronary angiography on the 06/26/2016. Successful PCI and stenting of proximal obtuse marginal artery with Resolute 2.25 x 14 drug-eluting stent. 3. Balloon angioplasty and stenting of the mid LAD with the Resolute 2.25 x 12 drug-eluting stent x2 on 06/27/2016. 4. Latest CBC: WBC 10.9, hemoglobin 12.7, hematocrit 37.3, platelet count 195. 5. Latest BMP: Sodium 137, potassium 3.6, chloride 103, carbon dioxide 26, anion gap 12, BUN 16, creatinine 0.56, glucose 109, calcium 8.6, phosphorus 2.3 , magnesium 2.1. 6. Hemoglobin A1c 5.3. 7. Fasting lipid panel: Triglycerides 110, total cholesterol 150, LDL 87, HDL 41. At this time, we would like to thank Dr. Lwaler for seeing the patient, doing the necessary procedures, and providing clinical recommendations. The case and management of this patient was fully discussed with Dr. Cook. Approximately 35 minutes was spent on coordinating the discharge on this patient. MORE COOK MD, AM/ANDIE Conf#: [id number] DID#: [id number]
== END 2016-06-28 15:45 | disposition home or self-care (01) | DRG 246 ==
LOC: E/R 09:23 → ICU 12:06
PROVIDERS: ADMIT Internal Medicine; ATTEND Internal Medicine
PROC: 027034Z Dilation of Coronary Artery, One Artery with Drug-eluting Intraluminal Device, Percutaneous Approach (ICD-10-PCS; principal; 2016-06-26)
PROC: 027034Z Dilation of Coronary Artery, One Artery with Drug-eluting Intraluminal Device, Percutaneous Approach (ICD-10-PCS; 2016-06-27)
DX: I21.11 ST elevation (STEMI) myocardial infarction involving right coronary artery (principal); I50.21 Acute systolic (congestive) heart failure; E78.5 Hyperlipidemia, unspecified; I25.5 Ischemic cardiomyopathy; I48.0 Paroxysmal atrial fibrillation; I10 Essential (primary) hypertension; Z85.3 Personal history of malignant neoplasm of breast; I25.10 Atherosclerotic heart disease of native coronary artery without angina pectoris
CPT/HCPCS: 36415; 71010; 80048; 80053; 80061; 83036; 83690; 83735; 84100; 84484; 85025; 85610; 87081; 93005; 93306; 93458; 96374; 96375; 96376; C1725; C1760; C1769; C1874; C1876; C1887; C1894; C9600; C9606; J0282; J0583; J1644; J2250; J2270; J2405; J3010; J7040; Q9967